=== PATIENT | female | born 2005 | race Two or more races ===

== ENCOUNTER 2023-04-30 12:58 | Emergency (ER) | payer MEDICAID, OTHER ==
[~2023-04-30] VITALS: Ht 160 cm; Wt 56.8 kg
[2023-04-30 13:17] VITALS: TEMP 98.4
[2023-04-30] MEDS ORDERED: IBUPROFEN 600 MG TABLET PO ONE (15:15)
[2023-04-30] MEDS ORDERED: IBUP-1492 PO (16:09)
[2023-04-30 16:10] VITALS: BP 107/75; PULSE 60; RESP 18
== END 2023-04-30 16:42 | disposition home or self-care (01) ==
LOC: EMS 13:14
DX: S16.1XXA Strain of muscle, fascia and tendon at neck level, initial encounter (principal); S09.90XA Unspecified injury of head, initial encounter; S50.12XA Contusion of left forearm, initial encounter; S40.022A Contusion of left upper arm, initial encounter; Y04.8XXA Assault by other bodily force, initial encounter; Y93.89 Activity, other specified; Y92.89 Other specified places as the place of occurrence of the external cause; Y99.8 Other external cause status
CPT/HCPCS: 72125; 99284; 73060-TC; 73090-TC; Z7502; Z7610